=== PATIENT | female | born 2000 | race Caucasian/White ===

== ENCOUNTER 2022-10-04 23:37 | Emergency (ER) | payer SELFPAY ==
[~2022-10-04] VITALS: Ht 167.6 cm; Wt 80.2 kg
[2022-10-05] MEDS ORDERED: ACETAMINOPHEN 325MG TABLET PO STA (00:43)
[2022-10-05 01:08] LABS: BASOPHILS % 0.3 % (0.0-2.0); EOSINOPHILS % 1.9 % (0.0-5.0); HEMATOCRIT. 36.5 % (36.0-48.0); HEMOGLOBIN. 11.8 g/dL (12.0-16.0); LYMPHOCYTES % 41.5 % (20.0-50.0); MEAN CORPUSCULAR HEMOGLOBIN 24.6 pg (28.0-32.0); MEAN CORPUSCULAR VOLUME 76.1 fL (81.0-99.0); MEAN PLATELET VOLUME 9.1 fl (7.4-10.4); MONOCYTES % 8.6 % (2.0-8.0); NEUTROPHILS % 47.7 % (40.0-76.0); PLATELET 184 x1000/uL (130-400); RED CELL DISTRIBUTION WIDTH 15.1 % (11.6-14.6)
[2022-10-05 01:24] LABS: HCG SCREEN NEGATIVE
[2022-10-05 01:26] LABS: CHLORIDE 111 mEq/L (98-107)
[2022-10-05 02:59] LABS: CLARITY URINE CLEAR (CLEAR); COLOR URINE YELLOW (YELLOW); KETONES URINE NEGATIVE (NEGATIVE); LEUKOCYTE ESTERASE URINE 2+ (NEGATIVE); NITRITE URINE NEGATIVE (NEGATIVE); OCCULT BLOOD URINE NEGATIVE (NEGATIVE); PROTEIN URINE NEGATIVE (NEGATIVE); SPECIFIC GRAVITY URINE 1.018 (1.005-1.030); UROBILINOGEN URINE 0.2 E.U./dL (0.2-1.0)
[2022-10-05] MEDS ORDERED: CEPH500C2 MT (03:04)
[2022-10-05] MEDS ORDERED: IBUP-2028 MT (03:04)
[2022-10-05 03:30] VITALS: BP 103/58
== END 2022-10-05 04:15 | disposition home or self-care (01) ==
LOC: ER 23:37
DX: N83.201 Unspecified ovarian cyst, right side (principal); N83.202 Unspecified ovarian cyst, left side; N39.0 Urinary tract infection, site not specified; Z87.820 Personal history of traumatic brain injury
CPT/HCPCS: 36415; 76856; 80053; 81003; 84703; 85025; 87186; 99284